=== PATIENT | female | born 1950 | race Caucasian/White ===

== ENCOUNTER 2017-06-14 16:01 | Inpatient (IN) | payer MEDICARE, MEDICAID ==
[~2017-06-14] VITALS: Ht 162.6 cm; Wt 72.1 kg
[~2017-06-14 16:01] MED LIST: ASPI-1159 PO; ATOR40TA70 PO; CALC-959 PO; FOLI-43 PO; HYDR200T35 PO; HYDR25TA PO; MELO-106 PO; METH2.5T PO; OMEP20CA10 PO; SULF500T8 PO
[2017-06-14] MEDS ORDERED: DOCUSATE SODIUM 100MG CAPSULE PO PRN (17:30)
[2017-06-14] MEDS ORDERED: DIPHENHYDRAMINE 50MG/ML VIAL IV PRN (17:30)
[2017-06-14] MEDS ORDERED: MAGNESIUM/ALUMINUM HYDROXIDE/SIMETHICONE 30ML UDC PO PRN (17:30)
[2017-06-14] MEDS ORDERED: ACETAMINOPHEN 325MG TABLET PO PRN (17:30)
[2017-06-14 17:45] VITALS: BP 148/55
[2017-06-14] MEDS: HYDROMORPHONE HCL/PF 2MG/ML CPJ IV PRN (18:20)
[2017-06-14] MEDS: DEXT 5%/0.45% NACL 1000ML 1,000 ML IV SCH (18:20)
[2017-06-14] MEDS ORDERED: PNEUMOCOCCAL 23-VAL P-SAC VAC 0.5 ML IM ONE (19:00)
[2017-06-14] MEDS ORDERED: INFLUENZA VIRUS VACCINE 0.5ML SYR IM ONE (19:00)
[2017-06-14 19:55] LABS: BASOPHILS % 1.4 % (0.0-2.0); EOSINOPHILS % 3.8 % (0.0-5.0); HEMATOCRIT. 37.3 % (36.0-48.0); HEMOGLOBIN. 12.1 g/dL (12.0-16.0); LYMPHOCYTES % 28.1 % (20.0-50.0); MEAN CORPUSCULAR VOLUME 95.7 fL (81.0-99.0); MEAN PLATELET VOLUME 9.9 fl (7.4-10.4); MONOCYTES % 7.7 % (2.0-8.0); PLATELET 205 x1000/uL (130-400); RED BLOOD CELL COUNT 3.89 mill/uL (4.2-5.4); RED CELL DISTRIBUTION WIDTH 16.8 % (11.6-14.6)
[2017-06-14 19:58] LABS: INR 1.1; PARTIAL THROMBOPLASTIN TIME 25.6 sec (23.4-31.0); PROTHROMBIN TIME 10.9 sec (9.4-11.6)
[2017-06-14 20:00] VITALS: BP 138/56
[2017-06-14] MEDS: LOSARTAN POTASSIUM 25 MG TABLET PO SCH (20:19)
[2017-06-14 20:45] LABS: CLARITY URINE CLEAR (CLEAR); COLOR URINE YELLOW (YELLOW); GLUCOSE URINE NEGATIVE (NEGATIVE); KETONES URINE NEGATIVE (NEGATIVE); LEUKOCYTE ESTERASE URINE NEGATIVE (NEGATIVE); NITRITE URINE NEGATIVE (NEGATIVE); OCCULT BLOOD URINE TRACE (NEGATIVE); PH URINE 7.5 (4.5-8.0); PROTEIN URINE NEGATIVE (NEGATIVE); UROBILINOGEN URINE 0.2 E.U./dL (0.2-1.0)
[2017-06-14 22:29] VITALS: BP 131/79
[2017-06-15] VITALS: BP 125/69
[2017-06-15 04:00] VITALS: BP 139/68
[2017-06-15] MEDS: DEXT 5%/0.45% NACL 1000ML 1,000 ML IV SCH ×3 (05:21→23:29)
[2017-06-15 08:00] VITALS: BP 130/62
[2017-06-15] MEDS: AMLODIPINE 5MG TABLET PO SCH (08:47)
[2017-06-15] MEDS: HYDROMORPHONE HCL/PF 2MG/ML CPJ IV PRN (10:07)
[2017-06-15 12:00] VITALS: BP 149/77
[2017-06-15] MEDS ORDERED: SKIN ADHESIVE 0.7 GM EA TOP ONE ×3 (15:52→18:10)
[2017-06-15] MEDS ORDERED: BUPIVACAINE/EPINEPHRINE/PF 0.25%/0.0005 30ML ONE (15:52)
[2017-06-15] MEDS ORDERED: MIDAZOLAM HCL 2 MG/2 ML VIAL ONE (15:53)
[2017-06-15] MEDS ORDERED: FENTANYL CITRATE/PF 50MCG/ML 2ML VIAL ONE (15:53)
[2017-06-15] MEDS ORDERED: LIDOCAINE HCL 1% 20ML VIAL (Pyxis) INJ ONE (15:55)
[2017-06-15] MEDS ORDERED: PROPOFOL 200MG/20ML VIAL IV ONE (15:55)
[2017-06-15] MEDS ORDERED: PHENYLEPHRINE HCL 10 MG/ML 1ML (IV VIAL) IV ONE (16:00)
[2017-06-15] MEDS ORDERED: SODIUM CHLORIDE 0.9% 10ML VIAL ONE ×2 (16:00→16:17)
[2017-06-15] MEDS ORDERED: ROCURONIUM BROMIDE 10MG/ML VIAL 5ML IV ONE (16:00)
[2017-06-15] MEDS ORDERED: ESMOLOL HCL 10MG/ML 10ML VIAL IV ONE (16:06)
[2017-06-15] MEDS ORDERED: CEFAZOLIN SODIUM 1000MG/VIAL ONE (16:17)
[2017-06-15] MEDS ORDERED: DEXAMETHASONE 4MG/ML 1ML VIAL ONE (16:32)
[2017-06-15] MEDS ORDERED: ONDANSETRON HCL 4MG/2ML VIAL ONE (16:33)
[2017-06-15] MEDS ORDERED: MORPHINE SULFATE 2 MG/ML CPJ (NOT FOR IM USE) IV PRN (18:15)
[2017-06-15] MEDS ORDERED: GLYCOPYRROLATE 0.2 MG/ML 2ML VIAL ONE (18:24)
[2017-06-15] MEDS ORDERED: NEOSTIGMINE METHYLSULFATE 1MG/ML 10 ML VIAL ONE (18:24)
[2017-06-15] MEDS ORDERED: MAGNESIUM HYDROXIDE 400MG/5ML 30ML UDC PO PRN (19:00)
[2017-06-15] MEDS ORDERED: HYDROCODONE/ACETAMINOPHEN 5/325MG TABLET PO PRN (19:00)
[2017-06-15] MEDS ORDERED: ACETAMINOPHEN 325MG TABLET PO PRN (19:00)
[2017-06-15] MEDS ORDERED: NALOXONE INJ IV PRN (19:15)
[2017-06-15] MEDS ORDERED: DIPHENHYDRAMINE INJ IV PRN (19:15)
[2017-06-15] MEDS ORDERED: ONDANSETRON INJ IV PRN (19:15)
[2017-06-15] MEDS: ONDANSETRON HCL 4MG/2ML VIAL IV PRN (19:48)
[2017-06-15] MEDS: MORPHINE PCA 50MG/50ML IV PRN (20:00)
[2017-06-15 21:30] VITALS: BP 154/63
[2017-06-15 23:12] LABS: BASOPHILS % 0.4 % (0.0-2.0); HEMATOCRIT. 35.2 % (36.0-48.0); HEMOGLOBIN. 11.7 g/dL (12.0-16.0); LYMPHOCYTES % 2.6 % (20.0-50.0); MEAN CORPUSCULAR HEMOGLOBIN 31.7 pg (28.0-32.0); MEAN CORPUSCULAR VOLUME 95.3 fL (81.0-99.0); MEAN PLATELET VOLUME 9.5 fl (7.4-10.4); MONOCYTES % 2.5 % (2.0-8.0); NEUTROPHILS % 94.5 % (40.0-76.0); PLATELET 175 x1000/uL (130-400); RED BLOOD CELL COUNT 3.69 mill/uL (4.2-5.4); RED CELL DISTRIBUTION WIDTH 16.7 % (11.6-14.6)
[2017-06-15] MEDS: LOSARTAN POTASSIUM 25 MG TABLET PO SCH (23:28)
[2017-06-15 23:29] LABS: CARBON DIOXIDE 26 mEq/L (21-32); CHLORIDE 107 mEq/L (98-107)
[2017-06-15] MEDS: CEFAZOLIN 1000MG PREMIX 50 ML IV SCH (23:30)
[2017-06-16] VITALS (7 sets, daily range): BP systolic 91–157; BP diastolic 40–85
[2017-06-16] MEDS: CEFAZOLIN 1000MG PREMIX 50 ML IV SCH (05:47)
[2017-06-16 07:06] LABS: CARBON DIOXIDE 27 mEq/L (21-32); CHLORIDE 106 mEq/L (98-107)
[2017-06-16 07:27] LABS: BASOPHILS % 0.5 % (0.0-2.0); HEMATOCRIT. 33.2 % (36.0-48.0); LYMPHOCYTES % 7.8 % (20.0-50.0); MEAN CORPUSCULAR HEMOGLOBIN 31.7 pg (28.0-32.0); MEAN CORPUSCULAR VOLUME 95.9 fL (81.0-99.0); MEAN PLATELET VOLUME 10.1 fl (7.4-10.4); MONOCYTES % 9.8 % (2.0-8.0); NEUTROPHILS % 81.9 % (40.0-76.0); PLATELET 171 x1000/uL (130-400); RED BLOOD CELL COUNT 3.46 mill/uL (4.2-5.4); RED CELL DISTRIBUTION WIDTH 17.2 % (11.6-14.6)
[2017-06-16] MEDS: AMLODIPINE 5MG TABLET PO SCH (09:00)
[2017-06-16] MEDS: DOCUSATE SODIUM 100MG CAPSULE PO SCH ×2 (10:07→18:33)
[2017-06-16] MEDS: ENOXAPARIN 40MG/0.4ML SYR SUBCUT SCH (10:08)
[2017-06-16] MEDS: MORPHINE PCA 50MG/50ML IV PRN (10:09)
[2017-06-16] MEDS: DEXT 5%/0.45% NACL 1000ML 1,000 ML IV SCH (18:34)
[2017-06-16] MEDS: LOSARTAN POTASSIUM 25 MG TABLET PO SCH (23:00)
[2017-06-17] VITALS: BP 108/51
[2017-06-17 04:00] VITALS: BP 112/54
[2017-06-17] MEDS: HYDROCODONE/ACETAMINOPHEN 5/325MG TABLET PO PRN ×2 (06:06→11:06)
[2017-06-17] MEDS: DEXT 5%/0.45% NACL 1000ML 1,000 ML IV SCH ×2 (06:07→16:00)
[2017-06-17 07:03] LABS: BASOPHILS % 1.3 % (0.0-2.0); EOSINOPHILS % 4.2 % (0.0-5.0); HEMATOCRIT. 30.1 % (36.0-48.0); HEMOGLOBIN. 9.8 g/dL (12.0-16.0); LYMPHOCYTES % 22.8 % (20.0-50.0); MEAN CORPUSCULAR HEMOGLOBIN 31.1 pg (28.0-32.0); MEAN CORPUSCULAR VOLUME 95.4 fL (81.0-99.0); MEAN PLATELET VOLUME 9.3 fl (7.4-10.4); MONOCYTES % 13.4 % (2.0-8.0); NEUTROPHILS % 58.3 % (40.0-76.0); PLATELET 135 x1000/uL (130-400); RED BLOOD CELL COUNT 3.15 mill/uL (4.2-5.4); RED CELL DISTRIBUTION WIDTH 17.1 % (11.6-14.6)
[2017-06-17 07:13] LABS: CARBON DIOXIDE 30 mEq/L (21-32); CHLORIDE 105 mEq/L (98-107)
[2017-06-17 08:40] VITALS: BP 109/46
[2017-06-17] MEDS: ENOXAPARIN 40MG/0.4ML SYR SUBCUT SCH (08:51)
[2017-06-17] MEDS: AMLODIPINE 5MG TABLET PO SCH (08:52)
[2017-06-17] MEDS: DOCUSATE SODIUM 100MG CAPSULE PO SCH ×2 (11:04→17:21)
[2017-06-17] MEDS ORDERED: KCL 20MEQ/100ML PREMIX 100 ML IV ONE (12:15)
[2017-06-17] MEDS: HYDROMORPHONE HCL/PF 2MG/ML CPJ IV PRN ×2 (13:07→23:43)
[2017-06-17] MEDS ORDERED: POTASSIUM CHLORIDE INJ 30 MEQ in DEXT 5% WATER 250 ML IV NR ×2 (13:30→16:00)
[2017-06-17 13:40] VITALS: BP 147/59
[2017-06-17 16:48] VITALS: BP 115/49
[2017-06-17 20:00] VITALS: BP 123/56
[2017-06-17] MEDS: LOSARTAN POTASSIUM 25 MG TABLET PO SCH (22:03)
[2017-06-17] MEDS: ONDANSETRON HCL 4MG/2ML VIAL IV PRN (23:43)
[2017-06-18] VITALS: BP 119/55
[2017-06-18 04:00] VITALS: BP 130/57
[2017-06-18 08:00] VITALS: BP 123/53
[2017-06-18] MEDS: DOCUSATE SODIUM 100MG CAPSULE PO SCH ×2 (09:02→18:12)
[2017-06-18] MEDS: AMLODIPINE 5MG TABLET PO SCH (09:02)
[2017-06-18] MEDS: ENOXAPARIN 40MG/0.4ML SYR SUBCUT SCH (09:03)
[2017-06-18] MEDS: HYDROMORPHONE HCL/PF 2MG/ML CPJ IV PRN (09:04)
[2017-06-18 12:00] VITALS: BP 106/52
[2017-06-18 16:00] VITALS: BP 124/57
[2017-06-18 16:53] VITALS: BP 106/52
== END 2017-06-18 18:35 | disposition home health service (06) | DRG 481 ==
LOC: 6EST 16:01
PROVIDERS: ADMIT Internal Medicine Rheumatology; ATTEND Internal Medicine Rheumatology
PROC: 0QH636Z Insertion of Intramedullary Internal Fixation Device into Right Upper Femur, Percutaneous Approach (ICD-10-PCS; principal; 2017-06-15 13:00)
DX: S72.041A Displaced fracture of base of neck of right femur, initial encounter for closed fracture (principal); E46 Unspecified protein-calorie malnutrition; I11.9 Hypertensive heart disease without heart failure; K56.7 Ileus, unspecified; K21.9 Gastro-esophageal reflux disease without esophagitis; M51.36 Other intervertebral disc degeneration, lumbar region; M06.9 Rheumatoid arthritis, unspecified; M50.30 Other cervical disc degeneration, unspecified cervical region; E78.5 Hyperlipidemia, unspecified; M81.0 Age-related osteoporosis without current pathological fracture; Z96.651 Presence of right artificial knee joint; Z90.710 Acquired absence of both cervix and uterus; Z82.49 Family history of ischemic heart disease and other diseases of the circulatory system; X58.XXXA Exposure to other specified factors, initial encounter; Y93.89 Activity, other specified; Y92.89 Other specified places as the place of occurrence of the external cause; Y99.8 Other external cause status
CPT/HCPCS: 36415; 71020; 73502; 73700; 80048; 80053; 81001; 83735; 84550; 85025; 85610; 85730; 86850; 86900; 87086; 90686; 90732; 93005; 93970; 97116; 97162; 97166; 97535; A4216; C1893; J0171; J0690; J1100; J1170; J1200; J1650; J2250; J2270; J2370; J2405; J2704; J2710; J3010; J3480; J3490; J7030; J7040; J7060; A4315

== ENCOUNTER → 2021-06-02 | Day surgery (SDC) | payer MEDICARE, MEDICAID ==
[~2021-06-02] VITALS: Ht 152.4 cm; Wt 78.5 kg
[~2021-06-02] MED LIST changes: +AM250 PO; -ASPI-1159 PO; +ASPI-1497 PO; -ATOR40TA70 PO; +BACITRACIN 15GM TUBE TOP ONE; +BUPIVACAINE HCL/PF 0.5% (5MG/ML) 10ML ONE; +CALC-1042 PO; -CALC-959 PO; +CEFAZOLIN SODIUM 1000MG/VIAL ONE; +CHOL400D7 PO; +DIOS630T PO; +FENTANYL CITRATE/PF 50MCG/ML 2ML VIAL ONE; +GLYCOPYRROLATE 0.2 MG/ML 2ML VIAL ONE; -HYDR25TA PO; +HYDROMORPHONE HCL/PF 2MG/ML CPJ IV PRN; +LACTATED RINGERS 1,000 ML IV SCH; +LIDOCAINE HCL 1% 20ML VIAL (Pyxis) INJ ONE; +LOSA100T32 PO; -MELO-106 PO; +MEPERIDINE HCL/PF 25MG/ML CPJ IV PRN; +METOCLOPRAMIDE HCL 10MG/2ML VIAL ONE; +MIDAZOLAM HCL 2 MG/2 ML VIAL ONE; +MORPHINE SULFATE 2 MG/ML CPJ (NOT FOR IM USE) IV PRN; -OMEP20CA10 PO; +ONDANSETRON HCL 4MG/2ML INJ IV PRN; +ONDANSETRON HCL 4MG/2ML INJ ONE; +POLYMYXIN B SULFATE 500000 UNITS/VIAL ONE; +PROPOFOL 200MG/20ML VIAL IV ONE; +SODIUM CHLORIDE 0.9% 1,000 ML IV ONE; +VANCOMYCIN HCL 1 GM/VIAL ONE
== END | disposition home or self-care (01) ==
LOC: OR 11:11
PROVIDERS: ATTEND Podiatrist Foot & Ankle Surgery
DX: M20.41 Other hammer toe(s) (acquired), right foot (principal); M79.671 Pain in right foot; M85.871 Other specified disorders of bone density and structure, right ankle and foot; I10 Essential (primary) hypertension; E78.5 Hyperlipidemia, unspecified; M06.9 Rheumatoid arthritis, unspecified; Z79.82 Long term (current) use of aspirin; Z79.899 Other long term (current) drug therapy; Z98.890 Other specified postprocedural states
CPT/HCPCS: 28285; 73630; 87070; 87075; 87077; 87186; 87205; 87426; 88311; J0690; J2250; J2405; J2704; J2765; J3010; J3490; J3370

== ENCOUNTER 2025-02-13 14:27 | Emergency (ER) | payer MEDICARE, MEDICAID ==
[~2025-02-13] VITALS: Ht 165.1 cm; Wt 79.0 kg
[~2025-02-13 14:27] MED LIST changes: -BACITRACIN 15GM TUBE TOP ONE; -BUPIVACAINE HCL/PF 0.5% (5MG/ML) 10ML ONE; -CEFAZOLIN SODIUM 1000MG/VIAL ONE; -FENTANYL CITRATE/PF 50MCG/ML 2ML VIAL ONE; -GLYCOPYRROLATE 0.2 MG/ML 2ML VIAL ONE; -HYDROMORPHONE HCL/PF 2MG/ML CPJ IV PRN; -LACTATED RINGERS 1,000 ML IV SCH; -LIDOCAINE HCL 1% 20ML VIAL (Pyxis) INJ ONE; -LOSA100T32 PO; +LOSA100T33 PO; -MEPERIDINE HCL/PF 25MG/ML CPJ IV PRN; -METOCLOPRAMIDE HCL 10MG/2ML VIAL ONE; -MIDAZOLAM HCL 2 MG/2 ML VIAL ONE; -MORPHINE SULFATE 2 MG/ML CPJ (NOT FOR IM USE) IV PRN; -ONDANSETRON HCL 4MG/2ML INJ IV PRN; -ONDANSETRON HCL 4MG/2ML INJ ONE; -POLYMYXIN B SULFATE 500000 UNITS/VIAL ONE; -PROPOFOL 200MG/20ML VIAL IV ONE; -SODIUM CHLORIDE 0.9% 1,000 ML IV ONE; -VANCOMYCIN HCL 1 GM/VIAL ONE
[2025-02-13 14:46] VITALS: TEMP 36.7; O2SAT 98
[2025-02-13] MEDS: KETOROLAC 30MG/ML VIAL IM ONE (16:27)
[2025-02-13 16:36] VITALS: BP 156/67; PULSE 93; RESP 18; O2SAT 100
== END 2025-02-13 16:40 | disposition home or self-care (01) ==
LOC: ER 14:27
DX: M25.562 Pain in left knee (principal); I10 Essential (primary) hypertension; M19.90 Unspecified osteoarthritis, unspecified site; Z79.82 Long term (current) use of aspirin; Z96.659 Presence of unspecified artificial knee joint; Z79.899 Other long term (current) drug therapy
CPT/HCPCS: 99283; 96372; J1885